=== PATIENT | male | born 1935 | race Caucasian/White ===

== ENCOUNTER 2016-06-28 11:47 | Observation (INO) | payer OTHER ==
[~2016-06-28] VITALS: Ht 165.1 cm; Wt 102.1 kg
[~2016-06-28 11:47] MED LIST: AMLODIPINE BESYL5 MG PO; APRESOLINE25 MG PO; ASPIR 8181 M1 PO; ASPIRIN325 MG PO; ATORVASTATIN CA80 MG PO; BAYER BACK & B1 EACH PO; BYSTOLIC10 MG PO; CLOPIDOGREL75 MG PO; COLCRYS0.6 MG PO; CRESTOR20 MG PO; CYANOCOBALAM1000 MCG PO; ECOTRIN325 MG PO; FUROSEMIDE20 MG PO; HYDROCHLOROTHIA25 MG PO; IRON325 MG PO; KAYEXALATE453.6 GM PO; LEVEMIR FL100 UNIT/1 SQ; LEVOTHYROXINE88 MCG PO; LEXAPRO10 MG PO; LIPITOR40 MG PO; MAGNESIUM400 M1 PO; METFORMIN HCL500 M4 PO; METFORMIN HCL500 MG PO; NITROSTAT0.4 MG SL; PANTOPRAZOLE SO40 MG PO; PERCOCET 5/31 TABLET PO; PLAVIX75 MG PO; PRAVASTATIN SOD20 MG PO; PRAVASTATIN SOD80 MG PO; PROTONIX40 MG PO; SODIUM BICARBO325 MG PO; TRADJENTA5 MG PO; VITAMIN D32000 UNIT PO; ZEMPLAR1 MCG PO; ZYLOPRIM100 MG PO; [UNRECOGNIZED DRUG - OTHER] TP
[2016-06-28 12:48] LABS: CHLORIDE 109 mEq/L (99-109); SODIUM 137 mEq/L (136-147)
[2016-06-28 12:50] LABS: GLUCOSE 188 mg/dL (70-99)
[2016-06-28 12:51] LABS: ANION GAP 7 MEQ/L (2-14)
[2016-06-28 12:52] LABS: TOTAL BILIRUBIN 0.1 mg/dL (0.0-1.0)
[2016-06-28 12:53] LABS: ALKALINE PHOSPHATASE 69 IU/L (3-129)
[2016-06-28 12:54] LABS: GFR ESTIMATE (CALCULATED) 22 mL/min/
[2016-06-28 12:55] LABS: UREA NITROGEN (BUN) 44 mg/dL (9-23)
[2016-06-28 13:07] LABS: HEMATOCRIT 29.1 % (38.0-50.0); MCH 28.5 PG (29.0-34.0); MCHC 32.6 G/DL (30.0-36.0); MCV 87.4 FL (86-99); MEAN PLAT.VOLUME 10.5 uM^3 (9.0-12.4); PLATELET COUNT 182 K/uL (156-360); RBC DIS.WIDTH-CV 12.7 % (11.8-14.6); RBC DIS.WIDTH-SD 40.5 % (39-53); RED BLOOD COUNT 3.33 M/uL (4.00-5.50); WHITE BLOOD COUNT 4.7 K/uL (4.1-10.2)
[2016-06-28 13:08] LABS: POTASSIUM 6.1 mEq/L (3.7-5.4)
[2016-06-28 13:35] LABS: ADD MIUA? YES; BILIRUBIN NEGATIVE; BLOOD NEGATIVE; COLOR YELLOW ((YELLOW)); GLUCOSE (STRIP) NEGATIVE; KETONES NEGATIVE; LEUKOCYTES SMALL; NITRITE NEGATIVE; PROTEIN (STRIP) 100; SPECIFIC GRAVITY 1.008 (1.000-1.030); UROBILINOGEN 0.2 MG/DL (0.2-1.0)
[2016-06-28 13:54] LABS: BACTERIA RARE /HPF; EPITHELIAL CELLS RARE /HPF; MUCUS TRACE /LPF; RED BLOOD CELLS 0-5 /HPF (0-5); UCUL ADDED? NO
[2016-06-28 14:35] LABS: POINT-OF-CARE METER ID UU14100415
[2016-06-28] MEDS ORDERED: CARDURA2 M1 PO (15:28)
[2016-06-28] MEDS ORDERED: LEVOTHYROXINE125 MCG PO (15:29)
[2016-06-28] MEDS ORDERED: GLIMEPIRIDE4 MG PO (15:30)
[2016-06-28] MEDS ORDERED: FLEXERIL5 MG PO (15:32)
[2016-06-28] MEDS ORDERED: LABETALOL HCL200 MG PO (15:34)
[2016-06-28] MEDS ORDERED: LEVEMIR FL100 UNIT/1 SC (15:35)
[2016-06-28 18:31] LABS: POINT-OF-CARE METER ID UU14100415
[2016-06-28 19:14] VITALS: BP 173/76
[2016-06-28 19:46] LABS: TROP-I INTERPRETATION NEGATIVE; TROPONIN-I < 0.01 ng/mL (0.0-0.30)
[2016-06-29] VITALS: BP 166/71
[2016-06-29 01:03] LABS: TROP-I INTERPRETATION NEGATIVE; TROPONIN-I < 0.01 ng/mL (0.0-0.30)
[2016-06-29 03:31] VITALS: BP 152/70
[2016-06-29 07:12] LABS: ANION GAP 7 MEQ/L (2-14); CHLORIDE 111 MEQ/L (99-109); GFR ESTIMATE (CALCULATED) 25 mL/min/; SAMPLE HEMOLYSIS CHECK 2; SAMPLE ICTERIC CHECK 0; SAMPLE LIPEMIA CHECK 0; SODIUM 141 MEQ/L (136-147); UREA NITROGEN (BUN) 37 mg/dL (9-23)
[2016-06-29 07:34] LABS: GLUCOSE 56 mg/dL (70-99)
[2016-06-29 07:35] LABS: POTASSIUM ND MEQ/L (3.7-5.4)
[2016-06-29 08:20] VITALS: BP 197/86
[2016-06-29 08:22] LABS: POINT-OF-CARE METER ID UU13113831
[2016-06-29 08:59] LABS: POTASSIUM 4.9 MEQ/L (3.7-5.4)
[2016-06-29 11:01] VITALS: BP 158/80
[2016-06-29] MEDS ORDERED: LEVEMIR100 UNIT/2 SC (12:13)
[2016-06-29 12:21] LABS: POINT-OF-CARE METER ID UU13113700
== END 2016-06-29 14:34 | disposition home or self-care (01) ==
LOC: EME 11:47 → 5WEST 15:50 → EDOF 15:50 → 5WEST 19:18
PROVIDERS: Emergency Medicine; Hospitalist; Internal Medicine
DX: R55 Syncope and collapse (principal); N17.9 Acute kidney failure, unspecified; E87.5 Hyperkalemia; N39.0 Urinary tract infection, site not specified; I12.9 Hypertensive chronic kidney disease with stage 1 through stage 4 chronic kidney disease, or unspecified chronic kidney disease; N18.3 Chronic kidney disease, stage 3 (moderate); E78.5 Hyperlipidemia, unspecified; E11.9 Type 2 diabetes mellitus without complications; Z79.4 Long term (current) use of insulin; I25.10 Atherosclerotic heart disease of native coronary artery without angina pectoris; Z95.5 Presence of coronary angioplasty implant and graft; D64.9 Anemia, unspecified
CPT/HCPCS: 70450; 71010; 80048; 80053; 81003; 82948; 84484; 84999; 85027; 93005; 99281; 99285; G0378; J0696; J1644; J1815; J7030; J7050

== ENCOUNTER 2016-07-16 12:12 | Inpatient (IN) | payer OTHER ==
[~2016-07-16] VITALS: Ht 162.6 cm; Wt 104.6 kg
[~2016-07-16 12:12] MED LIST changes: +CARDURA2 M1 PO; +FLEXERIL5 MG PO; +GLIMEPIRIDE4 MG PO; +LABETALOL HCL200 MG PO; +LEVEMIR FL100 UNIT/1 SC; +LEVEMIR100 UNIT/2 SC; +LEVOTHYROXINE125 MCG PO
[2016-07-16 12:50] LABS: EOSINOPHIL (%) 2.2 % (0-5); EOSINOPHIL COUNT 0.1 K/uL (0-0.3); HEMATOCRIT 29.5 % (38.0-50.0); IMMATURE GRANULOCYTE (%) 0.4 % (0.0-0.7); INSTRUMENT ABS NEUTROPHIL CT 3.7 K/uL; LYMPHOCYTE COUNT 1.3 K/uL (1.0-2.8); MCH 28.2 PG (29.0-34.0); MCHC 32.9 G/DL (30.0-36.0); MCV 85.8 FL (86-99); MEAN PLAT.VOLUME 10.2 uM^3 (9.0-12.4); MONOCYTE (%) 6.7 % (3-12); MONOCYTE COUNT 0.4 K/uL (0-0.8); NEUTROPHIL (%) 66.2 % (45-76); NEUTROPHIL COUNT 3.7 K/uL (1.8-6.4); PLATELET COUNT 228 K/uL (156-360); RBC DIS.WIDTH-CV 12.9 % (11.8-14.6); RBC DIS.WIDTH-SD 40.1 % (39-53); RED BLOOD COUNT 3.44 M/uL (4.00-5.50); WHITE BLOOD COUNT 5.5 K/uL (4.1-10.2)
[2016-07-16 12:57] LABS: CHLORIDE 111 mEq/L (99-109); POTASSIUM 5.8 mEq/L (3.7-5.4); SODIUM 135 mEq/L (136-147)
[2016-07-16 12:58] LABS: GLUCOSE 195 mg/dL (70-99); PROTHROMBIN TIME 10.3 (9.2-11.2)
[2016-07-16 13:00] LABS: ANION GAP 8 MEQ/L (2-14)
[2016-07-16 13:02] LABS: GFR ESTIMATE (CALCULATED) 22 mL/min/
[2016-07-16 13:03] LABS: UREA NITROGEN (BUN) 52 mg/dL (9-23)
[2016-07-16] MEDS ORDERED: VITAMIN D2000 UNIT PO (13:56)
[2016-07-16] MEDS ORDERED: VELTASSA16.8 GM PO (14:03)
[2016-07-16] MEDS ORDERED: GLIMEPIRIDE4 MG PO (14:03)
[2016-07-16] MEDS ORDERED: ALKA-SELTZER O1 EACH PO (14:04)
[2016-07-16 14:38] LABS: POINT-OF-CARE METER ID UU13113702
[2016-07-16 17:45] VITALS: BP 192/87
[2016-07-16 18:49] LABS: POINT-OF-CARE METER ID UU14149397
[2016-07-16 19:17] VITALS: BP 192/87
[2016-07-16 20:43] LABS: ANION GAP 10 MEQ/L (2-14); CHLORIDE 110 MEQ/L (99-109); GFR ESTIMATE (CALCULATED) 24 mL/min/; GLUCOSE 276 mg/dL (70-99); POTASSIUM 4.7 MEQ/L (3.7-5.4); SAMPLE HEMOLYSIS CHECK 0; SAMPLE ICTERIC CHECK 0; SAMPLE LIPEMIA CHECK 0; SODIUM 138 MEQ/L (136-147); UREA NITROGEN (BUN) 49 mg/dL (9-23)
[2016-07-16 21:59] LABS: POINT-OF-CARE METER ID UU14149397
[2016-07-16 23:50] VITALS: BP 188/64
[2016-07-17 02:11] VITALS: BP 147/68
[2016-07-17 04:18] VITALS: BP 136/63
[2016-07-17 05:01] LABS: MCH 28.9 PG (29.0-34.0); MCHC 33.7 G/DL (30.0-36.0); MCV 85.7 FL (86-99); MEAN PLAT.VOLUME 10.4 uM^3 (9.0-12.4); PLATELET COUNT 214 K/uL (156-360); RBC DIS.WIDTH-CV 12.8 % (11.8-14.6); RBC DIS.WIDTH-SD 39.7 % (39-53); RED BLOOD COUNT 3.15 M/uL (4.00-5.50); WHITE BLOOD COUNT 5.3 K/uL (4.1-10.2)
[2016-07-17 05:20] LABS: CHLORIDE 113 mEq/L (99-109); POTASSIUM 4.5 mEq/L (3.7-5.4); SODIUM 141 mEq/L (136-147)
[2016-07-17 05:22] LABS: GLUCOSE 84 mg/dL (70-99)
[2016-07-17 05:23] LABS: ANION GAP 11 MEQ/L (2-14)
[2016-07-17 05:25] LABS: GFR ESTIMATE (CALCULATED) 25 mL/min/
[2016-07-17 05:26] LABS: UREA NITROGEN (BUN) 53 mg/dL (9-23)
[2016-07-17 08:25] VITALS: BP 133/83
[2016-07-17 11:52] LABS: POINT-OF-CARE METER ID UU14188577
[2016-07-17 12:06] VITALS: BP 166/73
[2016-07-17 16:21] VITALS: BP 175/76
[2016-07-17 16:41] LABS: POINT-OF-CARE METER ID UU14188577
[2016-07-17 19:56] VITALS: BP 182/74
[2016-07-18 00:22] VITALS: BP 120/74
[2016-07-18 03:36] LABS: POINT-OF-CARE METER ID UU14149397
[2016-07-18 04:25] LABS: POINT-OF-CARE METER ID UU14149397
[2016-07-18 04:53] VITALS: BP 172/70
[2016-07-18 06:19] LABS: POINT-OF-CARE METER ID UU14149397
[2016-07-18 08:00] VITALS: BP 175/71
[2016-07-18 11:35] VITALS: BP 168/66
[2016-07-18 15:01] LABS: Estimated Average Glucose 197 mg/dL (70-123)
[2016-07-18 16:15] LABS: HEMOGLOBIN A1c (GLYCOHEMOGLOB) 8.5 % HGB (Below 5.7)
== END 2016-07-18 13:15 | disposition home or self-care (01) | DRG 683 ==
LOC: EME → EDBD 12:12 → EME 12:12 → EDOF 14:10 → 3EAST 14:10
PROVIDERS: Emergency Medicine; Internal Medicine; Physician Assistant; Student in an Organized Health Care Education/Training Program
DX: N17.9 Acute kidney failure, unspecified (principal); E87.1 Hypo-osmolality and hyponatremia; E87.2 Acidosis; E87.5 Hyperkalemia; N18.4 Chronic kidney disease, stage 4 (severe); I65.21 Occlusion and stenosis of right carotid artery; I12.9 Hypertensive chronic kidney disease with stage 1 through stage 4 chronic kidney disease, or unspecified chronic kidney disease; R55 Syncope and collapse; E78.5 Hyperlipidemia, unspecified; E11.22 Type 2 diabetes mellitus with diabetic chronic kidney disease; I25.10 Atherosclerotic heart disease of native coronary artery without angina pectoris; E03.9 Hypothyroidism, unspecified; R51 Headache; E66.9 Obesity, unspecified; D63.1 Anemia in chronic kidney disease; Z86.73 Personal history of transient ischemic attack (TIA), and cerebral infarction without residual deficits; Z87.891 Personal history of nicotine dependence; Z79.4 Long term (current) use of insulin; Z95.5 Presence of coronary angioplasty implant and graft; Z68.39 Body mass index [BMI] 39.0-39.9, adult; Z86.79 Personal history of other diseases of the circulatory system
CPT/HCPCS: 70450; 80048; 80048 91; 80069; 82948; 83036; 84443; 85025; 85027; 85610; 93005; 99281; 99285; J1644; J1815; J7030

== ENCOUNTER 2017-01-16 19:54 | Inpatient (IN) | payer OTHER ==
[~2017-01-16] VITALS: Ht 162.6 cm; Wt 102.8 kg
[~2017-01-16 19:54] MED LIST changes: +ALKA-SELTZER O1 EACH PO; +KIONEX15 GM/60 M PO; +VITAMIN D2000 UNIT PO; -ZEMPLAR1 MCG PO; +ZEMPLAR2 MCG PO
[2017-01-16 20:20] LABS: HEMATOCRIT 26.6 % (38.0-50.0); MCH 28.2 PG (29.0-34.0); MCHC 32.7 G/DL (30.0-36.0); MCV 86.4 FL (86-99); PLATELET COUNT 204 K/uL (156-360); RBC DIS.WIDTH-CV 12.7 % (11.8-14.6); RBC DIS.WIDTH-SD 39.8 % (39-53); RED BLOOD COUNT 3.08 M/uL (4.00-5.50); WHITE BLOOD COUNT 5.5 K/uL (4.1-10.2)
[2017-01-16 20:29] LABS: CHLORIDE 111 mEq/L (99-109); POTASSIUM 5.8 mEq/L (3.7-5.4); SODIUM 137 mEq/L (136-147)
[2017-01-16 20:31] LABS: GLUCOSE 354 mg/dL (70-99)
[2017-01-16 20:32] LABS: ANION GAP 7 MEQ/L (2-14)
[2017-01-16 20:35] LABS: GFR ESTIMATE (CALCULATED) 18 mL/min/
[2017-01-16 20:36] LABS: UREA NITROGEN (BUN) 52 mg/dL (9-23)
[2017-01-16 20:40] LABS: TROP-I INTERPRETATION NEGATIVE; TROPONIN-I 0.02 ng/mL (0.0-0.30)
[2017-01-16 22:36] LABS: POINT-OF-CARE METER ID UU13113702
[2017-01-16] MEDS ORDERED: IRON325 M1 PO (23:00)
[2017-01-16] MEDS ORDERED: RANEXA500 MG PO (23:02)
[2017-01-16] MEDS ORDERED: B COMPLEX #11 EACH PO (23:02)
[2017-01-17] VITALS (8 sets, daily range): BP systolic 158–206; BP diastolic 69–98
[2017-01-17 00:28] LABS: POINT-OF-CARE METER ID UU13113831
[2017-01-17 03:22] LABS: HEMATOCRIT 25.6 % (38.0-50.0); MCH 28.1 PG (29.0-34.0); MCHC 32.4 G/DL (30.0-36.0); MCV 86.8 FL (86-99); MEAN PLAT.VOLUME 10.3 uM^3 (9.0-12.4); PLATELET COUNT 202 K/uL (156-360); RBC DIS.WIDTH-CV 12.8 % (11.8-14.6); RBC DIS.WIDTH-SD 40.2 % (39-53); RED BLOOD COUNT 2.95 M/uL (4.00-5.50); WHITE BLOOD COUNT 5.3 K/uL (4.1-10.2)
[2017-01-17 03:39] LABS: CHLORIDE 109 mEq/L (99-109); POTASSIUM 5.1 mEq/L (3.7-5.4); SODIUM 140 mEq/L (136-147)
[2017-01-17 03:41] LABS: GLUCOSE 215 mg/dL (70-99)
[2017-01-17 03:42] LABS: ANION GAP 9 MEQ/L (2-14)
[2017-01-17 03:43] LABS: TOTAL BILIRUBIN 0.2 mg/dL (0.0-1.0)
[2017-01-17 03:45] LABS: ALKALINE PHOSPHATASE 107 IU/L (3-129); GFR ESTIMATE (CALCULATED) 18 mL/min/
[2017-01-17 03:46] LABS: TROP-I INTERPRETATION NEGATIVE; TROPONIN-I 0.11 ng/mL (0.0-0.30); UREA NITROGEN (BUN) 51 mg/dL (9-23)
[2017-01-17 08:43] LABS: POINT-OF-CARE METER ID UU13113831
[2017-01-17 09:20] LABS: TROP-I INTERPRETATION NEGATIVE; TROPONIN-I 0.12 ng/mL (0.0-0.30)
[2017-01-17 12:59] LABS: POINT-OF-CARE METER ID UU13113831
[2017-01-17 17:34] LABS: POINT-OF-CARE METER ID UU13113831
[2017-01-17 21:35] LABS: POINT-OF-CARE METER ID UU13113700
[2017-01-18 00:32] VITALS: BP 152/67
[2017-01-18 04:30] VITALS: BP 193/86
[2017-01-18 05:26] LABS: POINT-OF-CARE METER ID UU13113831
[2017-01-18 06:00] LABS: POINT-OF-CARE METER ID UU13113831
[2017-01-18 07:37] LABS: ANION GAP 10 MEQ/L (2-14); CHLORIDE 104 MEQ/L (99-109); GFR ESTIMATE (CALCULATED) 20 mL/min/; GLUCOSE 218 mg/dL (70-99); POTASSIUM 5.4 MEQ/L (3.7-5.4); SAMPLE HEMOLYSIS CHECK 0; SAMPLE ICTERIC CHECK 0; SAMPLE LIPEMIA CHECK 0; SODIUM 139 MEQ/L (136-147); UREA NITROGEN (BUN) 50 mg/dL (9-23)
[2017-01-18 07:43] VITALS: BP 128/60
[2017-01-18 07:54] LABS: POINT-OF-CARE METER ID UU13113831
[2017-01-18 11:52] VITALS: BP 126/66
[2017-01-18 12:35] LABS: POINT-OF-CARE METER ID UU13113831
[2017-01-18 15:37] VITALS: BP 149/64
[2017-01-18 17:52] LABS: POINT-OF-CARE METER ID UU13113831
[2017-01-18 19:20] VITALS: BP 153/67
[2017-01-18 22:06] LABS: POINT-OF-CARE METER ID UU13113831
[2017-01-19 00:40] VITALS: BP 123/57
[2017-01-19 03:40] LABS: POINT-OF-CARE METER ID UU13113831
[2017-01-19 04:04] LABS: POINT-OF-CARE METER ID UU13113831
[2017-01-19 04:14] VITALS: BP 128/56
[2017-01-19 06:48] LABS: ANION GAP 11 MEQ/L (2-14); CHLORIDE 104 MEQ/L (99-109); GFR ESTIMATE (CALCULATED) 17 mL/min/; POTASSIUM 5.2 MEQ/L (3.7-5.4); SAMPLE HEMOLYSIS CHECK 0; SAMPLE ICTERIC CHECK 0; SAMPLE LIPEMIA CHECK 0; SODIUM 140 MEQ/L (136-147); UREA NITROGEN (BUN) 53 mg/dL (9-23)
[2017-01-19 06:49] LABS: GLUCOSE 79 mg/dL (70-99)
[2017-01-19 07:24] VITALS: BP 187/71
[2017-01-19 07:35] VITALS: BP 179/78
[2017-01-19 09:14] LABS: POINT-OF-CARE METER ID UU13113831
[2017-01-19 10:42] VITALS: BP 131/63
[2017-01-19 10:57] LABS: POINT-OF-CARE METER ID UU13113831
[2017-01-19 13:07] LABS: POINT-OF-CARE METER ID UU13113831
[2017-01-19 14:02] LABS: TROP-I INTERPRETATION NEGATIVE; TROPONIN-I 0.04 ng/mL (0.0-0.30)
[2017-01-19] MEDS ORDERED: FAMOTIDINE20 MG PO (14:02)
[2017-01-19] MEDS ORDERED: LORAZEPAM0.5 MG PO (14:02)
[2017-01-19] MEDS ORDERED: APRESOLINE50 MG PO (14:02)
== END 2017-01-19 15:32 | disposition home or self-care (01) | DRG 683 ==
LOC: EME → EDBD 19:54 → EDOF 21:57 → 5WEST 21:57 → ENRESERV 22:01 → 5WEST 01-17 00:04 → CANRESERV 01-17 17:31 → ENRESERV 01-17 17:31 → ENPENDDIS 01-19 → 5WEST 01-19 15:32
PROVIDERS: Hospitalist; Internal Medicine; Internal Medicine Nephrology
DX: I12.9 Hypertensive chronic kidney disease with stage 1 through stage 4 chronic kidney disease, or unspecified chronic kidney disease (principal); N17.9 Acute kidney failure, unspecified; I25.10 Atherosclerotic heart disease of native coronary artery without angina pectoris; E11.22 Type 2 diabetes mellitus with diabetic chronic kidney disease; E66.01 Morbid (severe) obesity due to excess calories; N18.4 Chronic kidney disease, stage 4 (severe); E87.5 Hyperkalemia; F41.0 Panic disorder [episodic paroxysmal anxiety]; D63.1 Anemia in chronic kidney disease; I16.0 Hypertensive urgency; R07.9 Chest pain, unspecified; R51 Headache; K21.9 Gastro-esophageal reflux disease without esophagitis; E78.5 Hyperlipidemia, unspecified; Z79.4 Long term (current) use of insulin; Z87.891 Personal history of nicotine dependence; Z86.73 Personal history of transient ischemic attack (TIA), and cerebral infarction without residual deficits; Z95.5 Presence of coronary angioplasty implant and graft; Z79.899 Other long term (current) drug therapy; Z68.38 Body mass index [BMI] 38.0-38.9, adult; F33.9 Major depressive disorder, recurrent, unspecified
CPT/HCPCS: 70450; 71020; 76770; 80048; 80053; 82948; 83880; 84484; 85027; 90686; 93005; 93975; 99281; 99285; G0378; J0360; J1644; J1815; J1940

== ENCOUNTER 2017-01-26 00:42 | Inpatient (IN) | payer OTHER ==
[~2017-01-26] VITALS: Ht 162.6 cm; Wt 104.8 kg
[2017-01-26] VITALS (13 sets, daily range): BP systolic 143–216; BP diastolic 57–113
[~2017-01-26 00:42] MED LIST changes: +APRESOLINE50 MG PO; +B COMPLEX #11 EACH PO; +FAMOTIDINE20 MG PO; +IRON325 M1 PO; +LORAZEPAM0.5 MG PO; +RANEXA500 MG PO
[2017-01-26 01:12] LABS: HEMATOCRIT 30.4 % (38.0-50.0); MCH 28.5 PG (29.0-34.0); MCHC 32.9 G/DL (30.0-36.0); MCV 86.6 FL (86-99); RBC DIS.WIDTH-CV 12.8 % (11.8-14.6); RBC DIS.WIDTH-SD 40.2 % (39-53); RED BLOOD COUNT 3.51 M/uL (4.00-5.50); WHITE BLOOD COUNT 7.1 K/uL (4.1-10.2)
[2017-01-26 01:13] LABS: PLATELET COUNT 286 K/uL (156-360)
[2017-01-26 01:24] LABS: CHLORIDE 104 mEq/L (99-109); POTASSIUM 4.8 mEq/L (3.7-5.4); SODIUM 135 mEq/L (136-147)
[2017-01-26 01:27] LABS: ANION GAP 11 MEQ/L (2-14)
[2017-01-26 01:29] LABS: GFR ESTIMATE (CALCULATED) 15 mL/min/
[2017-01-26 01:30] LABS: UREA NITROGEN (BUN) 46 mg/dL (9-23)
[2017-01-26 01:33] LABS: TROP-I INTERPRETATION NEGATIVE; TROPONIN-I 0.05 ng/mL (0.0-0.30)
[2017-01-26 01:38] LABS: GLUCOSE 466 mg/dL (70-99)
[2017-01-26 03:33] LABS: ADD MIUA? YES; BILIRUBIN NEGATIVE; BLOOD NEGATIVE; COLOR YELLOW ((YELLOW)); GLUCOSE (STRIP) >=500; KETONES NEGATIVE; LEUKOCYTES NEGATIVE; NITRITE NEGATIVE; PROTEIN (STRIP) >=500; SPECIFIC GRAVITY 1.013 (1.000-1.030); UROBILINOGEN 0.2 MG/DL (0.2-1.0)
[2017-01-26 03:44] LABS: BACTERIA NONE SEEN /HPF; EPITHELIAL CELLS RARE /HPF; MUCUS NONE SEEN /LPF; RED BLOOD CELLS 0-5 /HPF (0-5); UCUL ADDED? NO; WHITE BLOOD CELLS 0-5 /HPF (0-5)
[2017-01-26 06:24] LABS: GLUCOSE 202 mg/dL (70-99)
[2017-01-26 06:25] LABS: TROP-I INTERPRETATION NEGATIVE; TROPONIN-I 0.05 ng/mL (0.0-0.30)
[2017-01-26 07:11] LABS: Estimated Average Glucose 220 mg/dL (70-123); HEMOGLOBIN A1c (GLYCOHEMOGLOB) 9.3 % HGB (Below 5.7)
[2017-01-26 08:48] LABS: POINT-OF-CARE METER ID UU13113747; POINT-OF-CARE USER ID HMLKAV
[2017-01-26] MEDS ORDERED: MAGNESIUM 300300 MG PO (11:14)
[2017-01-26 11:22] LABS: TROP-I INTERPRETATION NEGATIVE; TROPONIN-I 0.05 ng/mL (0.0-0.30)
[2017-01-26 12:03] LABS: PROTHROMBIN TIME 11.2 SEC (10.2-12.9)
[2017-01-26 12:05] LABS: PTT 29.6 SEC (25-37)
[2017-01-26 12:20] LABS: GLUCOSE 517 mg/dL (70-99)
[2017-01-26 14:48] LABS: METH RESISTANT S AUREUS PCR NEGATIVE (NEGATIVE)
[2017-01-26 14:57] LABS: PROBE CHECK PASS; SPECIMEN PROCESSING CONTROL PASS
[2017-01-26 16:22] LABS: POINT-OF-CARE METER ID UU13113774
[2017-01-26 16:22] LABS: POINT-OF-CARE METER ID UU13113725
[2017-01-26 19:42] LABS: UR CREATININE CONCENTRATION 71.4 MG/DL
[2017-01-26 20:02] LABS: TROP-I INTERPRETATION POSITIVE; TROPONIN-I 1.54 ng/mL (0.0-0.30)
[2017-01-26 22:15] LABS: POINT-OF-CARE METER ID UU13113731
[2017-01-27] VITALS (17 sets, daily range): BP systolic 98–147; BP diastolic 39–75
[2017-01-27 00:58] LABS: TROP-I INTERPRETATION POSITIVE
[2017-01-27 04:51] LABS: EOSINOPHIL (%) 0 % (0-5); HEMATOCRIT 26.7 % (38.0-50.0); IMMATURE GRANULOCYTE (%) 0.4 % (0.0-0.7); INSTRUMENT ABS NEUTROPHIL CT 7.2 K/uL; LYMPHOCYTE COUNT 1.2 K/uL (1.0-2.8); MCH 28.1 PG (29.0-34.0); MCHC 31.8 G/DL (30.0-36.0); MCV 88.1 FL (86-99); MEAN PLAT.VOLUME 10.6 uM^3 (9.0-12.4); MONOCYTE (%) 7.5 % (3-12); MONOCYTE COUNT 0.7 K/uL (0-0.8); NEUTROPHIL (%) 79.1 % (45-76); NEUTROPHIL COUNT 7.2 K/uL (1.8-6.4); PLATELET COUNT 232 K/uL (156-360); RBC DIS.WIDTH-SD 41.4 % (39-53); RED BLOOD COUNT 3.03 M/uL (4.00-5.50); WHITE BLOOD COUNT 9.1 K/uL (4.1-10.2)
[2017-01-27 05:30] LABS: CHLORIDE 107 mEq/L (99-109); POTASSIUM 5.6 mEq/L (3.7-5.4); SODIUM 137 mEq/L (136-147)
[2017-01-27 05:31] LABS: MAGNESIUM 2.9 mg/dL (1.3-2.7)
[2017-01-27 05:34] LABS: ANION GAP 11 MEQ/L (2-14)
[2017-01-27 05:36] LABS: GFR ESTIMATE (CALCULATED) 15 mL/min/
[2017-01-27 05:37] LABS: UREA NITROGEN (BUN) 52 mg/dL (9-23)
[2017-01-27 05:43] LABS: GLUCOSE 137 mg/dL (70-99)
[2017-01-27 08:52] LABS: POINT-OF-CARE METER ID UU13113731
[2017-01-27 12:43] LABS: POINT-OF-CARE METER ID UU14314082
[2017-01-27 13:00] LABS: TROP-I INTERPRETATION POSITIVE; TROPONIN-I 2.21 ng/mL (0.0-0.30)
[2017-01-27 18:31] LABS: TROP-I INTERPRETATION POSITIVE; TROPONIN-I 1.71 ng/mL (0.0-0.30)
[2017-01-27 19:09] LABS: POINT-OF-CARE METER ID UU14174217
[2017-01-27 21:53] LABS: POINT-OF-CARE METER ID UU14208751
[2017-01-28] VITALS (15 sets, daily range): BP systolic 128–192; BP diastolic 57–95
[2017-01-28 00:59] LABS: TROP-I INTERPRETATION POSITIVE
[2017-01-28 01:00] LABS: TROPONIN-I 1.27 ng/mL (0.0-0.30)
[2017-01-28 04:09] LABS: EOSINOPHIL (%) 0.5 % (0-5); HEMATOCRIT 25.6 % (38.0-50.0); IMMATURE GRANULOCYTE (%) 0.8 % (0.0-0.7); IMMATURE GRANULOCYTE COUNT 0.1 K/uL; INSTRUMENT ABS NEUTROPHIL CT 6.1 K/uL; LYMPHOCYTE COUNT 1.2 K/uL (1.0-2.8); MCH 28.2 PG (29.0-34.0); MCHC 31.6 G/DL (30.0-36.0); MCV 89.2 FL (86-99); MEAN PLAT.VOLUME 10.6 uM^3 (9.0-12.4); MONOCYTE (%) 5.5 % (3-12); MONOCYTE COUNT 0.4 K/uL (0-0.8); NEUTROPHIL (%) 77.1 % (45-76); NEUTROPHIL COUNT 6.1 K/uL (1.8-6.4); PLATELET COUNT 197 K/uL (156-360); RBC DIS.WIDTH-CV 13.1 % (11.8-14.6); RBC DIS.WIDTH-SD 42.8 % (39-53); RED BLOOD COUNT 2.87 M/uL (4.00-5.50); WHITE BLOOD COUNT 7.9 K/uL (4.1-10.2)
[2017-01-28 04:17] LABS: POINT-OF-CARE METER ID UU14162636
[2017-01-28 04:25] LABS: GLUCOSE 235 mg/dL (70-99)
[2017-01-28 04:34] LABS: CHLORIDE 108 mEq/L (99-109); SODIUM 137 mEq/L (136-147)
[2017-01-28 04:35] LABS: MAGNESIUM 2.7 mg/dL (1.3-2.7); POTASSIUM 4.3 mEq/L (3.7-5.4)
[2017-01-28 04:37] LABS: GLUCOSE 238 mg/dL (70-99)
[2017-01-28 04:38] LABS: ANION GAP 8 MEQ/L (2-14)
[2017-01-28 04:40] LABS: GFR ESTIMATE (CALCULATED) 14 mL/min/
[2017-01-28 04:41] LABS: UREA NITROGEN (BUN) 55 mg/dL (9-23)
[2017-01-28 06:07] LABS: POINT-OF-CARE METER ID UU14208751
[2017-01-28 06:36] LABS: POINT-OF-CARE METER ID UU14208751
[2017-01-28 08:23] LABS: POINT-OF-CARE METER ID UU14208751
[2017-01-28 09:00] LABS: POINT-OF-CARE METER ID UU14208751
[2017-01-28 12:55] LABS: POINT-OF-CARE METER ID UU14162636
[2017-01-28 17:08] LABS: POINT-OF-CARE METER ID UU13113731
[2017-01-28 22:52] LABS: POINT-OF-CARE METER ID UU13113731
[2017-01-29] VITALS (8 sets, daily range): BP systolic 118–159; BP diastolic 48–78
[2017-01-29 05:35] LABS: HEMATOCRIT 23.6 % (38.0-50.0); MCH 28.9 PG (29.0-34.0); MCHC 32.6 G/DL (30.0-36.0); MCV 88.7 FL (86-99); MEAN PLAT.VOLUME 10.9 uM^3 (9.0-12.4); PLATELET COUNT 192 K/uL (156-360); RBC DIS.WIDTH-CV 13.1 % (11.8-14.6); RBC DIS.WIDTH-SD 42.5 % (39-53); RED BLOOD COUNT 2.66 M/uL (4.00-5.50); WHITE BLOOD COUNT 7.6 K/uL (4.1-10.2)
[2017-01-29 08:06] LABS: POINT-OF-CARE METER ID UU13113731
[2017-01-29 08:59] LABS: ANION GAP 11 MEQ/L (2-14); CHLORIDE 106 MEQ/L (99-109); GFR ESTIMATE (CALCULATED) 15 mL/min/; GLUCOSE 136 mg/dL (70-99); IRON 10 MCG/DL (35-150); POTASSIUM 4.5 MEQ/L (3.7-5.4); SAMPLE HEMOLYSIS CHECK 0; SAMPLE ICTERIC CHECK 0; SAMPLE LIPEMIA CHECK 0; SODIUM 140 MEQ/L (136-147); UREA NITROGEN (BUN) 53 mg/dL (9-23)
[2017-01-29 12:18] LABS: POINT-OF-CARE METER ID UU13113731
[2017-01-29 19:54] LABS: POINT-OF-CARE METER ID UU14314082
[2017-01-29 20:17] LABS: POINT-OF-CARE METER ID UU14162636
[2017-01-29 20:42] LABS: POINT-OF-CARE METER ID UU13113748
[2017-01-30 03:36] VITALS: BP 189/79
[2017-01-30 05:26] LABS: HEMATOCRIT 23.8 % (38.0-50.0); MCH 28.9 PG (29.0-34.0); MCHC 33.2 G/DL (30.0-36.0); MCV 87.2 FL (86-99); MEAN PLAT.VOLUME 10.9 uM^3 (9.0-12.4); PLATELET COUNT 202 K/uL (156-360); RBC DIS.WIDTH-SD 41.2 % (39-53); RED BLOOD COUNT 2.73 M/uL (4.00-5.50); WHITE BLOOD COUNT 8.6 K/uL (4.1-10.2)
[2017-01-30 06:00] VITALS: BP 168/70
[2017-01-30 06:02] LABS: ANION GAP 10 MEQ/L (2-14); CHLORIDE 104 MEQ/L (99-109); GFR ESTIMATE (CALCULATED) 14 mL/min/; GLUCOSE 152 mg/dL (70-99); POTASSIUM 4.2 MEQ/L (3.7-5.4); SAMPLE HEMOLYSIS CHECK 0; SAMPLE ICTERIC CHECK 0; SAMPLE LIPEMIA CHECK 0; SODIUM 136 MEQ/L (136-147); UREA NITROGEN (BUN) 60 mg/dL (9-23)
[2017-01-30 06:58] VITALS: BP 167/72
[2017-01-30 07:42] LABS: POINT-OF-CARE METER ID UU14174216
[2017-01-30 11:22] LABS: POINT-OF-CARE METER ID UU14174216
[2017-01-30 11:44] VITALS: BP 140/63
[2017-01-30 15:55] VITALS: BP 152/87
[2017-01-30 16:13] LABS: POINT-OF-CARE METER ID UU14174216
[2017-01-30 19:11] VITALS: BP 147/65
[2017-01-30 21:05] LABS: POINT-OF-CARE METER ID UU14174216
[2017-01-31] VITALS (8 sets, daily range): BP systolic 116–224; BP diastolic 55–90
[2017-01-31 05:22] LABS: HEMATOCRIT 23.1 % (38.0-50.0); MCH 28.2 PG (29.0-34.0); MCHC 32.5 G/DL (30.0-36.0); MCV 86.8 FL (86-99); MEAN PLAT.VOLUME 10.6 uM^3 (9.0-12.4); PLATELET COUNT 238 K/uL (156-360); RBC DIS.WIDTH-CV 12.9 % (11.8-14.6); RBC DIS.WIDTH-SD 40.6 % (39-53); RED BLOOD COUNT 2.66 M/uL (4.00-5.50); WHITE BLOOD COUNT 9.9 K/uL (4.1-10.2)
[2017-01-31 05:58] LABS: ANION GAP 12 MEQ/L (2-14); CHLORIDE 104 MEQ/L (99-109); GFR ESTIMATE (CALCULATED) 15 mL/min/; POTASSIUM 4.1 MEQ/L (3.7-5.4); SAMPLE HEMOLYSIS CHECK 0; SAMPLE ICTERIC CHECK 0; SAMPLE LIPEMIA CHECK 0; SODIUM 139 MEQ/L (136-147); UREA NITROGEN (BUN) 60 mg/dL (9-23)
[2017-01-31 06:07] LABS: GLUCOSE 59 mg/dL (70-99)
[2017-01-31 07:29] LABS: POINT-OF-CARE METER ID UU13113698
[2017-01-31 11:35] LABS: POINT-OF-CARE METER ID UU14174216
[2017-01-31 16:34] LABS: POINT-OF-CARE METER ID UU14174216
[2017-01-31 21:46] LABS: POINT-OF-CARE METER ID UU13113698
[2017-02-01] VITALS (11 sets, daily range): BP systolic 114–175; BP diastolic 56–74
[2017-02-01 05:30] LABS: MCH 28.2 PG (29.0-34.0); MCHC 32.2 G/DL (30.0-36.0); MCV 87.8 FL (86-99); MEAN PLAT.VOLUME 10.9 uM^3 (9.0-12.4); PLATELET COUNT 217 K/uL (156-360); RBC DIS.WIDTH-SD 41.2 % (39-53); RED BLOOD COUNT 2.62 M/uL (4.00-5.50); WHITE BLOOD COUNT 7.3 K/uL (4.1-10.2)
[2017-02-01 06:11] LABS: ANION GAP 12 MEQ/L (2-14); CHLORIDE 102 MEQ/L (99-109); GFR ESTIMATE (CALCULATED) 15 mL/min/; POTASSIUM 4.2 MEQ/L (3.7-5.4); SAMPLE HEMOLYSIS CHECK 0; SAMPLE ICTERIC CHECK 0; SAMPLE LIPEMIA CHECK 0; SODIUM 139 MEQ/L (136-147); UREA NITROGEN (BUN) 58 mg/dL (9-23)
[2017-02-01 06:13] LABS: GLUCOSE 93 mg/dL (70-99)
[2017-02-01 07:24] LABS: POINT-OF-CARE METER ID UU13113698; POINT-OF-CARE USER ID NUTSLF44
[2017-02-01 12:47] LABS: POINT-OF-CARE METER ID UU14174216; POINT-OF-CARE USER ID NUTSLF44
[2017-02-01 16:14] LABS: POINT-OF-CARE METER ID UU13113781; POINT-OF-CARE USER ID NUTSLF44
[2017-02-01 21:21] LABS: POINT-OF-CARE METER ID UU13113698
[2017-02-02 05:07] LABS: EOSINOPHIL (%) 3.3 % (0-5); EOSINOPHIL COUNT 0.2 K/uL (0-0.3); HEMATOCRIT 26.9 % (38.0-50.0); IMMATURE GRANULOCYTE (%) 1.8 % (0.0-0.7); IMMATURE GRANULOCYTE COUNT 0.1 K/uL; INSTRUMENT ABS NEUTROPHIL CT 4.6 K/uL; MCH 28.6 PG (29.0-34.0); MCHC 32.7 G/DL (30.0-36.0); MCV 87.3 FL (86-99); MEAN PLAT.VOLUME 10.7 uM^3 (9.0-12.4); MONOCYTE (%) 9.5 % (3-12); MONOCYTE COUNT 0.6 K/uL (0-0.8); NEUTROPHIL (%) 69.5 % (45-76); NEUTROPHIL COUNT 4.6 K/uL (1.8-6.4); NRBC (%) 0.3 /100 WBC (0-0); PLATELET COUNT 212 K/uL (156-360); RBC DIS.WIDTH-CV 13.2 % (11.8-14.6); RED BLOOD COUNT 3.08 M/uL (4.00-5.50); WHITE BLOOD COUNT 6.6 K/uL (4.1-10.2)
[2017-02-02 05:12] LABS: CHLORIDE 104 mEq/L (99-109); POTASSIUM 4.4 mEq/L (3.7-5.4); SODIUM 136 mEq/L (136-147)
[2017-02-02 05:14] LABS: GLUCOSE 139 mg/dL (70-99)
[2017-02-02 05:16] LABS: ANION GAP 8 MEQ/L (2-14)
[2017-02-02 05:18] LABS: GFR ESTIMATE (CALCULATED) 15 mL/min/
[2017-02-02 05:19] LABS: UREA NITROGEN (BUN) 57 mg/dL (9-23)
[2017-02-02 07:30] VITALS: BP 150/70
[2017-02-02 08:11] LABS: POINT-OF-CARE METER ID UU14174216
[2017-02-02 10:46] VITALS: BP 134/62
[2017-02-02 11:54] LABS: POINT-OF-CARE METER ID UU13113698
[2017-02-02] MEDS ORDERED: DUONEB 2.5-0.5 M3 ML AEROSOL (16:10)
[2017-02-02] MEDS ORDERED: IMDUR30 MG PO (16:11)
[2017-02-02] MEDS ORDERED: APRESOLINE25 MG PO (16:11)
[2017-02-02] MEDS ORDERED: NITROSTAT0.4 MG SL (16:11)
[2017-02-02] MEDS ORDERED: FLONASE16 G1 BOTH NARES (16:12)
[2017-02-02] MEDS ORDERED: LABETALOL HCL200 MG PO (16:12)
[2017-02-02] MEDS ORDERED: NABI650T PO (16:19)
[2017-02-02 16:55] VITALS: BP 157/67
[2017-02-02 16:57] LABS: POINT-OF-CARE METER ID UU13113698; POINT-OF-CARE USER ID ENVKC36
[2017-02-02] MEDS ORDERED: HEPARIN SO5000 UNIT4 SC (17:46)
[2017-02-02] MEDS ORDERED: ARANESP60 MCG/0.3 SC (17:48)
[2017-02-02] MEDS ORDERED: LEVEMIR FL100 UNIT/1 SC (17:49)
[2017-02-02] MEDS ORDERED: COLACE100 MG PO (17:49)
[2017-02-02] MEDS ORDERED: LEXAPRO10 MG PO (17:50)
[2017-02-02] MEDS ORDERED: APRESOLINE20 MG/ML IV (17:52)
[2017-02-02] MEDS ORDERED: PROTONIX40 MG PO (17:53)
[2017-02-02] MEDS ORDERED: ATIVAN0.5 MG PO (17:55)
[2017-02-02] MEDS ORDERED: NOVOLOG PE100 UNITS/ SC (17:56)
[2017-02-02] MEDS ORDERED: PLAVIX75 MG PO (17:56)
[2017-02-02] MEDS ORDERED: MAALOX ADVANCE355 ML PO (17:58)
[2017-02-02] MEDS ORDERED: RANEXA500 MG PO (18:00)
== END 2017-02-02 17:07 | DRG 281 ==
LOC: EME → EDBD 00:42 → EME 00:42 → EDOF 05:03 → CANRESERV 05:05 → ENRESERV 05:05 → EDOF 05:12 → 4WEST 05:12 → 4EAST 05:12 → ENRESERV 05:17 → 5EAST 06:25 → ENRESERV 11:07 → 4WEST 12:37 → ENRESERV 01-29 20:43 → 4EAST 01-29 21:21
PROVIDERS: Emergency Medicine; Hospitalist; Internal Medicine Nephrology
PROC: 30233N1 Transfusion of Nonautologous Red Blood Cells into Peripheral Vein, Percutaneous Approach (ICD-10-PCS; principal; 2017-02-01)
DX: I21.4 Non-ST elevation (NSTEMI) myocardial infarction (principal); I16.0 Hypertensive urgency; I12.9 Hypertensive chronic kidney disease with stage 1 through stage 4 chronic kidney disease, or unspecified chronic kidney disease; N18.4 Chronic kidney disease, stage 4 (severe); N17.9 Acute kidney failure, unspecified; E87.70 Fluid overload, unspecified; E87.1 Hypo-osmolality and hyponatremia; E87.2 Acidosis; E87.5 Hyperkalemia; E11.649 Type 2 diabetes mellitus with hypoglycemia without coma; E11.65 Type 2 diabetes mellitus with hyperglycemia; E11.22 Type 2 diabetes mellitus with diabetic chronic kidney disease; I08.1 Rheumatic disorders of both mitral and tricuspid valves; D63.1 Anemia in chronic kidney disease; D50.9 Iron deficiency anemia, unspecified; I25.10 Atherosclerotic heart disease of native coronary artery without angina pectoris; E78.5 Hyperlipidemia, unspecified; F41.9 Anxiety disorder, unspecified; K21.9 Gastro-esophageal reflux disease without esophagitis; G43.909 Migraine, unspecified, not intractable, without status migrainosus; E03.9 Hypothyroidism, unspecified; F32.9 Major depressive disorder, single episode, unspecified; E66.9 Obesity, unspecified; Z68.39 Body mass index [BMI] 39.0-39.9, adult; I25.2 Old myocardial infarction; Z79.02 Long term (current) use of antithrombotics/antiplatelets; Z79.82 Long term (current) use of aspirin; Z79.4 Long term (current) use of insulin; Z95.5 Presence of coronary angioplasty implant and graft; Z86.73 Personal history of transient ischemic attack (TIA), and cerebral infarction without residual deficits; Z87.891 Personal history of nicotine dependence
CPT/HCPCS: 70450; 71010; 76705; 78582; 80048; 80069; 81003; 82272; 82570; 82948; 83036; 83540; 83735; 84100; 84156; 84443; 84466; 84484; 84999; 85025; 85027; 85610; 85730; 86850; 86900; 86901; 86920; 87641; 93005; 93306; 94799; 97530 GO; 99202; 99281; 99285; A9540; A9567; J0360; J0780; J0881; J1100; J1200; J1644; J1756; J1815; J1940; J2270; J2405; J2765; J7030; J7050; P9016

== ENCOUNTER 2017-02-02 10:11 | Inpatient (IN) | payer OTHER ==
[~2017-02-02] VITALS: Ht 162.6 cm; Wt 109.8 kg
[~2017-02-02 10:11] MED LIST changes: +MAGNESIUM 300300 MG PO
[2017-02-02] MEDS ORDERED: DUONEB 2.5-0.5 M3 ML AEROSOL (16:10)
[2017-02-02] MEDS ORDERED: IMDUR30 MG PO (16:11)
[2017-02-02] MEDS ORDERED: APRESOLINE25 MG PO (16:11)
[2017-02-02] MEDS ORDERED: NITROSTAT0.4 MG SL (16:11)
[2017-02-02] MEDS ORDERED: FLONASE16 G1 BOTH NARES (16:12)
[2017-02-02] MEDS ORDERED: LABETALOL HCL200 MG PO (16:12)
[2017-02-02] MEDS ORDERED: NABI650T PO (16:19)
[2017-02-02] MEDS ORDERED: HEPARIN SO5000 UNIT4 SC (17:46)
[2017-02-02 17:48] LABS: POINT-OF-CARE METER ID UU13113720
[2017-02-02] MEDS ORDERED: ARANESP60 MCG/0.3 SC (17:48)
[2017-02-02] MEDS ORDERED: LEVEMIR FL100 UNIT/1 SC (17:49)
[2017-02-02] MEDS ORDERED: COLACE100 MG PO (17:49)
[2017-02-02] MEDS ORDERED: LEXAPRO10 MG PO (17:50)
[2017-02-02] MEDS ORDERED: APRESOLINE20 MG/ML IV (17:52)
[2017-02-02] MEDS ORDERED: PROTONIX40 MG PO (17:53)
[2017-02-02] MEDS ORDERED: ATIVAN0.5 MG PO (17:55)
[2017-02-02] MEDS ORDERED: NOVOLOG PE100 UNITS/ SC (17:56)
[2017-02-02] MEDS ORDERED: PLAVIX75 MG PO (17:56)
[2017-02-02] MEDS ORDERED: MAALOX ADVANCE355 ML PO (17:58)
[2017-02-02] MEDS ORDERED: RANEXA500 MG PO (18:00)
[2017-02-02 18:08] VITALS: BP 146/64
[2017-02-02 21:27] LABS: POINT-OF-CARE METER ID UU14174215
[2017-02-03 05:32] VITALS: BP 117/55
[2017-02-03 05:32] LABS: MCH 28.9 PG (29.0-34.0); MCHC 32.1 G/DL (30.0-36.0); MEAN PLAT.VOLUME 10.8 uM^3 (9.0-12.4); PLATELET COUNT 215 K/uL (156-360); RBC DIS.WIDTH-CV 13.3 % (11.8-14.6); RED BLOOD COUNT 3.11 M/uL (4.00-5.50); WHITE BLOOD COUNT 6.4 K/uL (4.1-10.2)
[2017-02-03 06:40] LABS: ALKALINE PHOSPHATASE 126 IU/L (3-129); ANION GAP 9 MEQ/L (2-14); CHLORIDE 101 MEQ/L (99-109); GFR ESTIMATE (CALCULATED) 13 mL/min/; GLUCOSE 182 mg/dL (70-99); POTASSIUM 4.9 MEQ/L (3.7-5.4); SAMPLE HEMOLYSIS CHECK 0; SAMPLE ICTERIC CHECK 0; SAMPLE LIPEMIA CHECK 0; SODIUM 136 MEQ/L (136-147); TOTAL BILIRUBIN 0.4 MG/DL (0.0-1.0); UREA NITROGEN (BUN) 58 mg/dL (9-23)
[2017-02-03 07:09] LABS: POINT-OF-CARE METER ID UU14174215; POINT-OF-CARE USER ID ENVGAF
[2017-02-03 11:43] LABS: POINT-OF-CARE METER ID UU14174215; POINT-OF-CARE USER ID ENVGAF
[2017-02-03 15:26] VITALS: BP 118/57
[2017-02-03 17:57] LABS: POINT-OF-CARE METER ID UU14174215
[2017-02-03 20:57] LABS: POINT-OF-CARE METER ID UU13113720
[2017-02-04 04:34] VITALS: BP 104/51
[2017-02-04 07:57] LABS: POINT-OF-CARE METER ID UU14174215; POINT-OF-CARE USER ID AHSSSJB31
[2017-02-04 11:50] LABS: POINT-OF-CARE METER ID UU13113720; POINT-OF-CARE USER ID AHSSSJB31
[2017-02-04 13:25] LABS: ANTI-HEPATITIS B CORE (TOTAL) Nonreactive; HBCT INDEX 0.11
[2017-02-04 14:25] LABS: EOSINOPHIL (%) 1.7 % (0-5); EOSINOPHIL COUNT 0.1 K/uL (0-0.3); HEMATOCRIT 28.2 % (38.0-50.0); IMMATURE GRANULOCYTE (%) 1.1 % (0.0-0.7); IMMATURE GRANULOCYTE COUNT 0.1 K/uL; INSTRUMENT ABS NEUTROPHIL CT 5.6 K/uL; MCH 28.6 PG (29.0-34.0); MCHC 30.9 G/DL (30.0-36.0); MCV 92.8 FL (86-99); MEAN PLAT.VOLUME 11.1 uM^3 (9.0-12.4); MONOCYTE (%) 7.1 % (3-12); MONOCYTE COUNT 0.5 K/uL (0-0.8); NEUTROPHIL (%) 76.7 % (45-76); NEUTROPHIL COUNT 5.6 K/uL (1.8-6.4); PLATELET COUNT 200 K/uL (156-360); RBC DIS.WIDTH-CV 13.7 % (11.8-14.6); RBC DIS.WIDTH-SD 44.3 % (39-53); RED BLOOD COUNT 3.04 M/uL (4.00-5.50); WHITE BLOOD COUNT 7.2 K/uL (4.1-10.2)
[2017-02-04 14:31] LABS: HBSG INDEX 0.17
[2017-02-04 14:32] LABS: HPCA INDEX 0.11
[2017-02-04 14:33] LABS: AHBS INDEX 0.34; HEPATITIS B SURFACE ANTIBODY Nonreactive
[2017-02-04 14:36] LABS: ANION GAP 11 MEQ/L (2-14); CHLORIDE 99 MEQ/L (99-109); POTASSIUM 4.7 MEQ/L (3.7-5.4); SAMPLE HEMOLYSIS CHECK 0; SAMPLE ICTERIC CHECK 0; SAMPLE LIPEMIA CHECK 0; SODIUM 136 MEQ/L (136-147)
[2017-02-04 14:41] LABS: GFR ESTIMATE (CALCULATED) 13 mL/min/; GLUCOSE 142 mg/dL (70-99); UREA NITROGEN (BUN) 64 mg/dL (9-23)
[2017-02-04 16:19] LABS: POINT-OF-CARE METER ID UU14174215; POINT-OF-CARE USER ID 610211320
[2017-02-04 16:21] VITALS: BP 165/70
[2017-02-04 21:24] LABS: POINT-OF-CARE METER ID UU14174215
[2017-02-05 05:59] VITALS: BP 123/57
[2017-02-05 07:30] LABS: POINT-OF-CARE METER ID UU13113720; POINT-OF-CARE USER ID AHSSSJB31
[2017-02-05 07:49] LABS: POINT-OF-CARE METER ID UU13113720; POINT-OF-CARE USER ID AHSSSJB31
[2017-02-05 11:53] LABS: POINT-OF-CARE METER ID UU13113720; POINT-OF-CARE USER ID AHSSSJB31
[2017-02-05 15:51] VITALS: BP 128/58
[2017-02-05 15:59] LABS: POINT-OF-CARE METER ID UU13113720; POINT-OF-CARE USER ID 610211320
[2017-02-05 21:04] LABS: POINT-OF-CARE METER ID UU13113720; POINT-OF-CARE USER ID 610211320
[2017-02-06 05:27] VITALS: BP 167/71
[2017-02-06 05:36] LABS: POINT-OF-CARE METER ID UU13113720
[2017-02-06 05:51] LABS: EOSINOPHIL (%) 2.3 % (0-5); EOSINOPHIL COUNT 0.1 K/uL (0-0.3); HEMATOCRIT 27.7 % (38.0-50.0); IMMATURE GRANULOCYTE (%) 1.3 % (0.0-0.7); IMMATURE GRANULOCYTE COUNT 0.1 K/uL; INSTRUMENT ABS NEUTROPHIL CT 3.6 K/uL; MCH 28.8 PG (29.0-34.0); MCHC 31.4 G/DL (30.0-36.0); MCV 91.7 FL (86-99); MEAN PLAT.VOLUME 10.3 uM^3 (9.0-12.4); MONOCYTE (%) 8.8 % (3-12); MONOCYTE COUNT 0.5 K/uL (0-0.8); NEUTROPHIL (%) 68.4 % (45-76); NEUTROPHIL COUNT 3.6 K/uL (1.8-6.4); PLATELET COUNT 165 K/uL (156-360); RBC DIS.WIDTH-CV 13.5 % (11.8-14.6); RBC DIS.WIDTH-SD 43.4 % (39-53); RED BLOOD COUNT 3.02 M/uL (4.00-5.50); WHITE BLOOD COUNT 5.2 K/uL (4.1-10.2)
[2017-02-06 06:23] LABS: ANION GAP 7 MEQ/L (2-14); CHLORIDE 100 MEQ/L (99-109); GFR ESTIMATE (CALCULATED) 15 mL/min/; POTASSIUM 4.7 MEQ/L (3.7-5.4); SAMPLE HEMOLYSIS CHECK 0; SAMPLE ICTERIC CHECK 0; SAMPLE LIPEMIA CHECK 0; SODIUM 138 MEQ/L (136-147); UREA NITROGEN (BUN) 45 mg/dL (9-23)
[2017-02-06 06:24] LABS: GLUCOSE 73 mg/dL (70-99)
[2017-02-06 14:47] VITALS: BP 172/75
[2017-02-06 14:53] LABS: POINT-OF-CARE METER ID UU13113720; POINT-OF-CARE USER ID AHSSSJB31
[2017-02-06 15:17] VITALS: BP 161/68
[2017-02-06 16:28] LABS: POINT-OF-CARE METER ID UU13113720
[2017-02-06 21:10] LABS: POINT-OF-CARE METER ID UU13113720
[2017-02-07 05:50] VITALS: BP 168/92
[2017-02-07 06:16] LABS: EOSINOPHIL COUNT 0.1 K/uL (0-0.3); HEMATOCRIT 27.7 % (38.0-50.0); IMMATURE GRANULOCYTE (%) 1.3 % (0.0-0.7); IMMATURE GRANULOCYTE COUNT 0.1 K/uL; INSTRUMENT ABS NEUTROPHIL CT 3.2 K/uL; LYMPHOCYTE COUNT 0.9 K/uL (1.0-2.8); MCH 28.2 PG (29.0-34.0); MCHC 31.4 G/DL (30.0-36.0); MCV 89.9 FL (86-99); MEAN PLAT.VOLUME 10.3 uM^3 (9.0-12.4); MONOCYTE (%) 7.5 % (3-12); MONOCYTE COUNT 0.4 K/uL (0-0.8); NEUTROPHIL (%) 67.7 % (45-76); NEUTROPHIL COUNT 3.2 K/uL (1.8-6.4); PLATELET COUNT 165 K/uL (156-360); RBC DIS.WIDTH-CV 13.3 % (11.8-14.6); RBC DIS.WIDTH-SD 42.6 % (39-53); RED BLOOD COUNT 3.08 M/uL (4.00-5.50); WHITE BLOOD COUNT 4.7 K/uL (4.1-10.2)
[2017-02-07 06:52] LABS: ANION GAP 7 MEQ/L (2-14); CHLORIDE 101 MEQ/L (99-109); GFR ESTIMATE (CALCULATED) 24 mL/min/; GLUCOSE 96 mg/dL (70-99); POTASSIUM 4.6 MEQ/L (3.7-5.4); SAMPLE HEMOLYSIS CHECK 0; SAMPLE ICTERIC CHECK 0; SAMPLE LIPEMIA CHECK 0; SODIUM 138 MEQ/L (136-147); UREA NITROGEN (BUN) 23 mg/dL (9-23)
[2017-02-07 07:07] LABS: POINT-OF-CARE METER ID UU14174215; POINT-OF-CARE USER ID ENVGAF
[2017-02-07 12:00] VITALS: BP 197/85
[2017-02-07 12:19] LABS: POINT-OF-CARE METER ID UU14174215; POINT-OF-CARE USER ID ENVGAF
[2017-02-07 12:45] VITALS: BP 152/70
[2017-02-07 15:16] VITALS: BP 178/80
[2017-02-07 16:22] LABS: POINT-OF-CARE METER ID UU14174215
[2017-02-07 21:25] LABS: POINT-OF-CARE METER ID UU14174215
[2017-02-08 05:33] VITALS: BP 168/82
[2017-02-08 07:01] LABS: POINT-OF-CARE METER ID UU13113720; POINT-OF-CARE USER ID ENVGAF
[2017-02-08 08:35] LABS: EOSINOPHIL (%) 2.7 % (0-5); EOSINOPHIL COUNT 0.2 K/uL (0-0.3); HEMATOCRIT 28.3 % (38.0-50.0); IMMATURE GRANULOCYTE (%) 0.8 % (0.0-0.7); IMMATURE GRANULOCYTE COUNT 0.1 K/uL; INSTRUMENT ABS NEUTROPHIL CT 4.5 K/uL; LYMPHOCYTE COUNT 0.8 K/uL (1.0-2.8); MCH 28.3 PG (29.0-34.0); MCHC 31.4 G/DL (30.0-36.0); MCV 90.1 FL (86-99); MONOCYTE (%) 7.3 % (3-12); MONOCYTE COUNT 0.4 K/uL (0-0.8); NEUTROPHIL (%) 74.9 % (45-76); NEUTROPHIL COUNT 4.5 K/uL (1.8-6.4); PLATELET COUNT 178 K/uL (156-360); RBC DIS.WIDTH-CV 13.4 % (11.8-14.6); RBC DIS.WIDTH-SD 43.3 % (39-53); RED BLOOD COUNT 3.14 M/uL (4.00-5.50)
[2017-02-08 08:55] LABS: ANION GAP 7 MEQ/L (2-14); CHLORIDE 102 MEQ/L (99-109); GFR ESTIMATE (CALCULATED) 22 mL/min/; GLUCOSE 173 mg/dL (70-99); POTASSIUM 4.7 MEQ/L (3.7-5.4); SAMPLE HEMOLYSIS CHECK 0; SAMPLE ICTERIC CHECK 0; SAMPLE LIPEMIA CHECK 0; SODIUM 139 MEQ/L (136-147); UREA NITROGEN (BUN) 26 mg/dL (9-23)
[2017-02-08 12:42] VITALS: BP 192/80
[2017-02-08 12:52] LABS: POINT-OF-CARE METER ID UU13113720
[2017-02-08 13:24] VITALS: BP 155/68
[2017-02-08 13:26] LABS: POINT-OF-CARE METER ID UU13113720
[2017-02-08 15:07] VITALS: BP 118/56
[2017-02-08 16:18] LABS: POINT-OF-CARE METER ID UU13113720
[2017-02-08 21:22] LABS: POINT-OF-CARE METER ID UU13113720
[2017-02-09 04:55] VITALS: BP 152/65
[2017-02-09 05:22] LABS: EOSINOPHIL (%) 4.1 % (0-5); EOSINOPHIL COUNT 0.2 K/uL (0-0.3); HEMATOCRIT 26.3 % (38.0-50.0); IMMATURE GRANULOCYTE (%) 0.6 % (0.0-0.7); INSTRUMENT ABS NEUTROPHIL CT 2.8 K/uL; LYMPHOCYTE COUNT 1.2 K/uL (1.0-2.8); MCH 28.2 PG (29.0-34.0); MCHC 31.2 G/DL (30.0-36.0); MCV 90.4 FL (86-99); MONOCYTE COUNT 0.5 K/uL (0-0.8); NEUTROPHIL (%) 59.8 % (45-76); NEUTROPHIL COUNT 2.8 K/uL (1.8-6.4); RBC DIS.WIDTH-CV 13.3 % (11.8-14.6); RBC DIS.WIDTH-SD 43.4 % (39-53); RED BLOOD COUNT 2.91 M/uL (4.00-5.50); WHITE BLOOD COUNT 4.6 K/uL (4.1-10.2)
[2017-02-09 05:44] LABS: ANION GAP 6 MEQ/L (2-14); CHLORIDE 101 MEQ/L (99-109); GFR ESTIMATE (CALCULATED) 24 mL/min/; POTASSIUM 4.3 MEQ/L (3.7-5.4); SAMPLE HEMOLYSIS CHECK 0; SAMPLE ICTERIC CHECK 0; SAMPLE LIPEMIA CHECK 0; SODIUM 139 MEQ/L (136-147); UREA NITROGEN (BUN) 18 mg/dL (9-23)
[2017-02-09 05:46] LABS: GLUCOSE 57 mg/dL (70-99)
[2017-02-09 06:24] LABS: MEAN PLAT.VOLUME 10.1 uM^3 (9.0-12.4); PLAT.SUFFICIENCY DECREASED
[2017-02-09 06:26] LABS: PLATELET COUNT 118 K/uL (156-360)
[2017-02-09 07:41] LABS: POINT-OF-CARE METER ID UU13113720; POINT-OF-CARE USER ID AHSSSJB31
[2017-02-09 09:39] VITALS: BP 131/59
[2017-02-09 09:56] VITALS: BP 164/70
[2017-02-09 11:03] VITALS: BP 168/80
[2017-02-09 11:35] LABS: POINT-OF-CARE METER ID UU13113720; POINT-OF-CARE USER ID AHSSSJB31
[2017-02-09 13:20] VITALS: BP 170/78
[2017-02-09 13:45] LABS: HEMATOCRIT 27.6 % (38.0-50.0); MCH 28.5 PG (29.0-34.0); MCHC 31.5 G/DL (30.0-36.0); MCV 90.5 FL (86-99); MEAN PLAT.VOLUME 10.4 uM^3 (9.0-12.4); PLATELET COUNT 131 K/uL (156-360); RBC DIS.WIDTH-CV 13.2 % (11.8-14.6); RBC DIS.WIDTH-SD 43.2 % (39-53); RED BLOOD COUNT 3.05 M/uL (4.00-5.50); WHITE BLOOD COUNT 5.5 K/uL (4.1-10.2)
[2017-02-09 14:04] LABS: TROP-I INTERPRETATION NEGATIVE; TROPONIN-I 0.03 ng/mL (0.0-0.30)
[2017-02-09 14:14] LABS: ANION GAP 6 MEQ/L (2-14); CHLORIDE 94 MEQ/L (99-109); GFR ESTIMATE (CALCULATED) 22 mL/min/; GLUCOSE 278 mg/dL (70-99); POTASSIUM 4.6 MEQ/L (3.7-5.4); SAMPLE HEMOLYSIS CHECK 0; SAMPLE ICTERIC CHECK 0; SAMPLE LIPEMIA CHECK 0; SODIUM 130 MEQ/L (136-147); UREA NITROGEN (BUN) 21 mg/dL (9-23)
[2017-02-09 15:11] VITALS: BP 177/80
[2017-02-09 16:27] LABS: POINT-OF-CARE METER ID UU13113720
[2017-02-09 17:35] LABS: TROP-I INTERPRETATION NEGATIVE; TROPONIN-I 0.03 ng/mL (0.0-0.30)
[2017-02-09 20:06] LABS: TROP-I INTERPRETATION NEGATIVE; TROPONIN-I 0.03 ng/mL (0.0-0.30)
[2017-02-09 20:47] LABS: POINT-OF-CARE METER ID UU14174215
[2017-02-10 05:36] VITALS: BP 142/81
[2017-02-10 07:13] VITALS: BP 150/65
[2017-02-10 07:18] LABS: ANION GAP 6 MEQ/L (2-14); CHLORIDE 100 MEQ/L (99-109); GFR ESTIMATE (CALCULATED) 22 mL/min/; SAMPLE HEMOLYSIS CHECK 0; SAMPLE ICTERIC CHECK 0; SAMPLE LIPEMIA CHECK 0; UREA NITROGEN (BUN) 23 mg/dL (9-23)
[2017-02-10 07:19] LABS: GLUCOSE 119 mg/dL (70-99); SODIUM 137 MEQ/L (136-147)
[2017-02-10 07:23] LABS: POINT-OF-CARE METER ID UU14174215; POINT-OF-CARE USER ID AHSSSJB31
[2017-02-10 08:36] LABS: EOSINOPHIL COUNT 0.2 K/uL (0-0.3); HEMATOCRIT 28.4 % (38.0-50.0); IMMATURE GRANULOCYTE (%) 0.6 % (0.0-0.7); INSTRUMENT ABS NEUTROPHIL CT 3.7 K/uL; LYMPHOCYTE COUNT 0.9 K/uL (1.0-2.8); MCH 28.6 PG (29.0-34.0); MCHC 31.7 G/DL (30.0-36.0); MCV 90.2 FL (86-99); MEAN PLAT.VOLUME 10.6 uM^3 (9.0-12.4); MONOCYTE (%) 8.5 % (3-12); MONOCYTE COUNT 0.5 K/uL (0-0.8); NEUTROPHIL (%) 70.3 % (45-76); NEUTROPHIL COUNT 3.7 K/uL (1.8-6.4); PLATELET COUNT 146 K/uL (156-360); RBC DIS.WIDTH-CV 13.4 % (11.8-14.6); RED BLOOD COUNT 3.15 M/uL (4.00-5.50); WHITE BLOOD COUNT 5.3 K/uL (4.1-10.2)
[2017-02-10 12:54] LABS: POINT-OF-CARE METER ID UU14174215
[2017-02-10 13:00] VITALS: BP 162/70
[2017-02-10 15:58] VITALS: BP 129/62
[2017-02-10 16:30] LABS: POINT-OF-CARE METER ID UU14174215
[2017-02-10 21:29] LABS: POINT-OF-CARE METER ID UU14174215
[2017-02-11 04:15] VITALS: BP 127/59
[2017-02-11 07:14] LABS: POINT-OF-CARE METER ID UU13113720; POINT-OF-CARE USER ID ENVGAF
[2017-02-11 11:37] LABS: POINT-OF-CARE METER ID UU13113720; POINT-OF-CARE USER ID ENVGAF
[2017-02-11 15:02] VITALS: BP 187/81
[2017-02-11 15:47] VITALS: BP 193/82
[2017-02-11 16:18] LABS: POINT-OF-CARE METER ID UU13113720
[2017-02-11 17:31] VITALS: BP 162/82
[2017-02-11 21:28] LABS: POINT-OF-CARE METER ID UU14174215
[2017-02-11 21:42] VITALS: BP 152/76
[2017-02-12 06:05] VITALS: BP 160/76
[2017-02-12 06:30] LABS: POINT-OF-CARE METER ID UU13113720; POINT-OF-CARE USER ID ENVGAF
[2017-02-12 11:28] LABS: POINT-OF-CARE METER ID UU14174215
[2017-02-12 15:19] VITALS: BP 200/90
[2017-02-12 15:33] VITALS: BP 118/78
[2017-02-12 16:15] VITALS: BP 160/82
[2017-02-12 16:18] LABS: POINT-OF-CARE METER ID UU14174215
[2017-02-12 21:09] LABS: POINT-OF-CARE METER ID UU14174215
[2017-02-13 04:56] VITALS: BP 145/78
[2017-02-13 06:36] LABS: POINT-OF-CARE METER ID UU14174215; POINT-OF-CARE USER ID ENVGAF
[2017-02-13 08:46] LABS: EOSINOPHIL (%) 1.8 % (0-5); EOSINOPHIL COUNT 0.1 K/uL (0-0.3); HEMATOCRIT 28.6 % (38.0-50.0); IMMATURE GRANULOCYTE (%) 0.2 % (0.0-0.7); INSTRUMENT ABS NEUTROPHIL CT 3.6 K/uL; LYMPHOCYTE COUNT 0.9 K/uL (1.0-2.8); MCH 28.7 PG (29.0-34.0); MCHC 32.2 G/DL (30.0-36.0); MCV 89.1 FL (86-99); MONOCYTE (%) 8.6 % (3-12); MONOCYTE COUNT 0.4 K/uL (0-0.8); NEUTROPHIL (%) 71.6 % (45-76); NEUTROPHIL COUNT 3.6 K/uL (1.8-6.4); PLATELET COUNT 140 K/uL (156-360); RBC DIS.WIDTH-CV 13.4 % (11.8-14.6); RBC DIS.WIDTH-SD 43.2 % (39-53); RED BLOOD COUNT 3.21 M/uL (4.00-5.50)
[2017-02-13 08:57] LABS: ANION GAP 6 MEQ/L (2-14); CHLORIDE 101 MEQ/L (99-109); SAMPLE HEMOLYSIS CHECK 0; SAMPLE ICTERIC CHECK 0; SAMPLE LIPEMIA CHECK 0; SODIUM 136 MEQ/L (136-147)
[2017-02-13 09:03] LABS: GFR ESTIMATE (CALCULATED) 21 mL/min/; UREA NITROGEN (BUN) 25 mg/dL (9-23)
[2017-02-13 09:04] LABS: GLUCOSE 277 mg/dL (70-99)
[2017-02-13 12:30] VITALS: BP 148/67
[2017-02-13 12:44] LABS: POINT-OF-CARE METER ID UU14174215; POINT-OF-CARE USER ID AHSSSJB31
[2017-02-13 18:29] LABS: POINT-OF-CARE METER ID UU14174215
[2017-02-13 19:22] VITALS: BP 128/62
[2017-02-13 21:20] LABS: POINT-OF-CARE METER ID UU14174215
[2017-02-14 06:25] VITALS: BP 142/80
[2017-02-14 06:31] LABS: EOSINOPHIL (%) 4.1 % (0-5); EOSINOPHIL COUNT 0.2 K/uL (0-0.3); HEMATOCRIT 29.5 % (38.0-50.0); IMMATURE GRANULOCYTE (%) 0.3 % (0.0-0.7); INSTRUMENT ABS NEUTROPHIL CT 2.3 K/uL; LYMPHOCYTE COUNT 1.1 K/uL (1.0-2.8); MCH 28.2 PG (29.0-34.0); MCHC 31.9 G/DL (30.0-36.0); MCV 88.6 FL (86-99); MONOCYTE (%) 10.6 % (3-12); MONOCYTE COUNT 0.4 K/uL (0-0.8); NEUTROPHIL (%) 57.9 % (45-76); NEUTROPHIL COUNT 2.3 K/uL (1.8-6.4); PLATELET COUNT 103 K/uL (156-360); RBC DIS.WIDTH-CV 13.3 % (11.8-14.6); RBC DIS.WIDTH-SD 43.1 % (39-53); RED BLOOD COUNT 3.33 M/uL (4.00-5.50)
[2017-02-14 07:01] LABS: ANION GAP 6 MEQ/L (2-14); CHLORIDE 100 MEQ/L (99-109); GFR ESTIMATE (CALCULATED) 20 mL/min/; SAMPLE HEMOLYSIS CHECK 0; SAMPLE ICTERIC CHECK 0; SAMPLE LIPEMIA CHECK 0; SODIUM 136 MEQ/L (136-147); UREA NITROGEN (BUN) 18 mg/dL (9-23)
[2017-02-14 07:14] LABS: GLUCOSE 116 mg/dL (70-99)
[2017-02-14 07:30] LABS: POINT-OF-CARE METER ID UU14174215; POINT-OF-CARE USER ID AHSSSJB31
[2017-02-14 11:42] LABS: POINT-OF-CARE METER ID UU14174215; POINT-OF-CARE USER ID AHSSSJB31
[2017-02-14 15:25] VITALS: BP 165/83
[2017-02-14] MEDS ORDERED: LABETALOL HCL100 MG PO (17:42)
[2017-02-14] MEDS ORDERED: IMDUR30 MG PO (17:42)
[2017-02-14] MEDS ORDERED: B COMPLEX #11 EACH PO (17:42)
[2017-02-14] MEDS ORDERED: SENNA PLUS TAB1 EACH PO (17:42)
[2017-02-14] MEDS ORDERED: APRESOLINE25 MG PO (17:42)
[2017-02-14] MEDS ORDERED: FLONASE16 G1 BOTH NARES (17:42)
[2017-02-14] MEDS ORDERED: LEVEMIR100 UNIT/2 SC (17:42)
[2017-02-14] MEDS ORDERED: ZEMPLAR2 MCG PO (17:42)
[2017-02-14] MEDS ORDERED: NITROSTAT0.4 MG SL (17:42)
[2017-02-14] MEDS ORDERED: PRAVASTATIN SOD40 MG PO (17:42)
[2017-02-14] MEDS ORDERED: LEXAPRO10 MG PO (17:42)
[2017-02-14] MEDS ORDERED: ACETAMINOPHEN-1 EAC1 PO (17:42)
[2017-02-14] MEDS ORDERED: PROTONIX40 MG PO (17:42)
[2017-02-14] MEDS ORDERED: LEVOTHYROXINE125 MCG PO (17:42)
[2017-02-14] MEDS ORDERED: GLIMEPIRIDE4 MG PO (17:42)
[2017-02-14] MEDS ORDERED: PLAVIX75 MG PO (17:42)
[2017-02-14] MEDS ORDERED: CYANOCOBALAM1000 MCG PO (17:42)
[2017-02-14] MEDS ORDERED: ASPIR 8181 M1 PO (17:42)
[2017-02-14 21:17] LABS: POINT-OF-CARE METER ID UU13113720
[2017-02-15 05:39] VITALS: BP 148/70
[2017-02-15 05:43] LABS: POINT-OF-CARE METER ID UU14174215
[2017-02-15 08:24] LABS: EOSINOPHIL (%) 2.7 % (0-5); EOSINOPHIL COUNT 0.1 K/uL (0-0.3); HEMATOCRIT 28.4 % (38.0-50.0); IMMATURE GRANULOCYTE (%) 0.5 % (0.0-0.7); LYMPHOCYTE COUNT 0.9 K/uL (1.0-2.8); MCH 29.2 PG (29.0-34.0); MCHC 33.5 G/DL (30.0-36.0); MCV 87.4 FL (86-99); MEAN PLAT.VOLUME 10.6 uM^3 (9.0-12.4); MONOCYTE COUNT 0.4 K/uL (0-0.8); NEUTROPHIL (%) 67.4 % (45-76); RBC DIS.WIDTH-CV 13.4 % (11.8-14.6); RBC DIS.WIDTH-SD 42.5 % (39-53); RED BLOOD COUNT 3.25 M/uL (4.00-5.50); WHITE BLOOD COUNT 4.4 K/uL (4.1-10.2)
[2017-02-15 08:26] LABS: PLATELET COUNT 135 K/uL (156-360)
[2017-02-15 08:38] LABS: ANION GAP 7 MEQ/L (2-14); CHLORIDE 98 MEQ/L (99-109); POTASSIUM 4.7 MEQ/L (3.7-5.4); SAMPLE HEMOLYSIS CHECK 0; SAMPLE ICTERIC CHECK 0; SAMPLE LIPEMIA CHECK 0; SODIUM 133 MEQ/L (136-147)
[2017-02-15 08:44] LABS: GFR ESTIMATE (CALCULATED) 20 mL/min/; UREA NITROGEN (BUN) 21 mg/dL (9-23)
[2017-02-15 08:45] LABS: GLUCOSE 186 mg/dL (70-99)
[2017-02-15 12:03] LABS: POINT-OF-CARE METER ID UU14174215; POINT-OF-CARE USER ID AHSSSJB31
[2017-02-15 12:13] VITALS: BP 150/70
[2017-02-15 15:24] VITALS: BP 98/48
== END 2017-02-15 16:30 | disposition home health service (06) | DRG 945 ==
LOC: 3WEST 10:11 → ENPENDDIS 02-15 → 3WEST 02-15 16:30
PROVIDERS: Family Medicine; Internal Medicine Nephrology; Physical Medicine & Rehabilitation Pain Medicine; Student in an Organized Health Care Education/Training Program
PROC: F07M0ZZ Range of Motion and Joint Mobility Treatment of Musculoskeletal System - Whole Body (ICD-10-PCS; principal; 2017-02-02)
PROC: 5A1D70Z Performance of Urinary Filtration, Intermittent, Less than 6 Hours Per Day (ICD-10-PCS; 2017-02-04)
DX: R53.1 Weakness (principal); Z74.09 Other reduced mobility; R26.2 Difficulty in walking, not elsewhere classified; I21.4 Non-ST elevation (NSTEMI) myocardial infarction; N17.9 Acute kidney failure, unspecified; I13.2 Hypertensive heart and chronic kidney disease with heart failure and with stage 5 chronic kidney disease, or end stage renal disease; I50.9 Heart failure, unspecified; N18.6 End stage renal disease; I25.110 Atherosclerotic heart disease of native coronary artery with unstable angina pectoris; I27.20 Pulmonary hypertension, unspecified; G47.33 Obstructive sleep apnea (adult) (pediatric); E11.22 Type 2 diabetes mellitus with diabetic chronic kidney disease; E11.649 Type 2 diabetes mellitus with hypoglycemia without coma; E11.65 Type 2 diabetes mellitus with hyperglycemia; D63.1 Anemia in chronic kidney disease; E78.5 Hyperlipidemia, unspecified; E03.9 Hypothyroidism, unspecified; G89.29 Other chronic pain; K21.9 Gastro-esophageal reflux disease without esophagitis; F41.9 Anxiety disorder, unspecified; E66.01 Morbid (severe) obesity due to excess calories; Z68.41 Body mass index [BMI] 40.0-44.9, adult; I25.2 Old myocardial infarction; Z79.4 Long term (current) use of insulin; Z79.02 Long term (current) use of antithrombotics/antiplatelets; Z86.73 Personal history of transient ischemic attack (TIA), and cerebral infarction without residual deficits; Z87.891 Personal history of nicotine dependence; Z95.5 Presence of coronary angioplasty implant and graft; Z99.2 Dependence on renal dialysis
CPT/HCPCS: 71010; 71020; 80048; 80048 91; 80053; 80069; 82948; 84484; 85025; 85027; 86704; 86706; 86803; 87340; 93005; 94640; 94799; 97110 GO; 97530 GP; 99202; J0690; J0881; J1644; J1815

== ENCOUNTER 2017-02-03 15:36 | Day surgery (SDC) | payer OTHER ==
[~2017-02-03 15:36] MED LIST changes: +APRESOLINE20 MG/ML IV; +ARANESP60 MCG/0.3 SC; +ATIVAN0.5 MG PO; +COLACE100 MG PO; +DUONEB 2.5-0.5 M3 ML AEROSOL; +FLONASE16 G1 BOTH NARES; +HEPARIN SO5000 UNIT4 SC; +IMDUR30 MG PO; +MAALOX ADVANCE355 ML PO; +NABI650T PO; +NOVOLOG PE100 UNITS/ SC
== END 2017-02-03 17:26 | disposition home or self-care (01) ==
LOC: CATH 15:36
DX: N18.9 Chronic kidney disease, unspecified (principal)
CPT/HCPCS: C1750; C1894; J1644; J2250; J3010; S0020

== ENCOUNTER 2017-05-24 11:09 | Day surgery (SDC) | payer OTHER ==
[~2017-05-24] VITALS: Ht 162.6 cm; Wt 95.0 kg
[~2017-05-24 11:09] MED LIST changes: +ACETAMINOPHEN-1 EAC1 PO; +AMARYL2 MG PO; +LABETALOL HCL100 MG PO; +LO-DOSE ASPIRIN81 M2 PO; +NEPHRONEX900 MCG/5 PO; +PRAVASTATIN SOD40 MG PO; +SENNA PLUS TAB1 EACH PO; +SYNTHROID125 MCG PO
[2017-05-24 11:57] LABS: HEMATOCRIT 33.1 % (38.0-50.0); HEMOGLOBIN 11.7 G/DL (12.5-16.6); MCH 30.4 PG (29.0-34.0); MCHC 35.3 G/DL (30.0-36.0); PLATELET COUNT 140 K/uL (156-360); RBC DIS.WIDTH-CV 13.5 % (11.8-14.6); RED BLOOD COUNT 3.85 M/uL (4.00-5.50); WHITE BLOOD COUNT 6.1 K/uL (4.1-10.2)
[2017-05-24 12:01] VITALS: BP 135/61
[2017-05-24 12:40] LABS: CHLORIDE 98 MEQ/L (99-109); CREATININE 3.5 MG/DL (0.6-1.3); GFR ESTIMATE (CALCULATED) 18 mL/min/ (58.99-99999); GLUCOSE 288 mg/dL (70-99); POTASSIUM 3.8 MEQ/L (3.7-5.4); SODIUM 135 MEQ/L (136-147); UREA NITROGEN (BUN) 32 mg/dL (9-23)
[2017-05-24 15:23] VITALS: BP 159/70
[2017-05-24 16:13] VITALS: BP 162/68
== END 2017-05-24 16:20 | disposition home or self-care (01) ==
LOC: SDC 11:09
PROVIDERS: Surgery
DX: I12.0 Hypertensive chronic kidney disease with stage 5 chronic kidney disease or end stage renal disease (principal); E11.22 Type 2 diabetes mellitus with diabetic chronic kidney disease; N18.6 End stage renal disease; Z99.2 Dependence on renal dialysis; Z79.4 Long term (current) use of insulin; Z79.02 Long term (current) use of antithrombotics/antiplatelets; E78.00 Pure hypercholesterolemia, unspecified; K21.9 Gastro-esophageal reflux disease without esophagitis; Z86.73 Personal history of transient ischemic attack (TIA), and cerebral infarction without residual deficits; G47.30 Sleep apnea, unspecified; F41.9 Anxiety disorder, unspecified
CPT/HCPCS: 80048; 82948; 85027; 87641; J0690; J1644; J2250; J2405; J2720

== ENCOUNTER 2017-07-18 06:26 | Day surgery (SDC) | payer OTHER ==
[~2017-07-18] VITALS: Ht 162.6 cm; Wt 95.7 kg
[~2017-07-18 06:26] MED LIST changes: +VITAMIN E PO
[2017-07-18 07:09] LABS: HEMATOCRIT 34.2 % (38.0-50.0); HEMOGLOBIN 11.7 G/DL (12.5-16.6); MCH 29.9 PG (29.0-34.0); MCHC 34.2 G/DL (30.0-36.0); MCV 87.5 FL (86-99); PLATELET COUNT 101 K/uL (156-360); RBC DIS.WIDTH-CV 13.2 % (11.8-14.6); RED BLOOD COUNT 3.91 M/uL (4.00-5.50); WHITE BLOOD COUNT 6.2 K/uL (4.1-10.2)
[2017-07-18 07:33] VITALS: BP 151/67
[2017-07-18 07:33] LABS: CHLORIDE 99 MEQ/L (99-109); CREATININE 2.6 MG/DL (0.6-1.3); GFR ESTIMATE (CALCULATED) 25 mL/min/ (58.99-99999); GLUCOSE 119 mg/dL (70-99); POTASSIUM 3.8 MEQ/L (3.7-5.4); SODIUM 138 MEQ/L (136-147); UREA NITROGEN (BUN) 19 mg/dL (9-23)
[2017-07-18 11:10] VITALS: BP 146/64
[2017-07-18 11:58] VITALS: BP 126/60
== END 2017-07-18 12:39 | disposition home or self-care (01) ==
LOC: SDC 06:26
PROVIDERS: Surgery
PROC: 03180JD Bypass Left Brachial Artery to Upper Arm Vein with Synthetic Substitute, Open Approach (ICD-10-PCS; principal; 2017-07-18)
DX: E11.22 Type 2 diabetes mellitus with diabetic chronic kidney disease (principal); N18.6 End stage renal disease; Z99.2 Dependence on renal dialysis; E78.5 Hyperlipidemia, unspecified; Z86.73 Personal history of transient ischemic attack (TIA), and cerebral infarction without residual deficits; G47.30 Sleep apnea, unspecified; F41.9 Anxiety disorder, unspecified; K21.9 Gastro-esophageal reflux disease without esophagitis; Z79.82 Long term (current) use of aspirin; Z79.4 Long term (current) use of insulin; Z88.8 Allergy status to other drugs, medicaments and biological substances; Z88.5 Allergy status to narcotic agent
CPT/HCPCS: 80048; 82948; 85027; 87641; C1768; J0690; J1644; J2250; J2405; J2720; J3010; S0020

== ENCOUNTER → 2017-08-18 | Outpatient (CLI) | payer OTHER | END | disposition home or self-care (01) | LOC: AMB 08:48 | PROC: 05PY03Z Removal of Infusion Device from Upper Vein, Open Approach (ICD-10-PCS; principal; 2017-08-18) | DX: N18.6 End stage renal disease (principal) ==

== ENCOUNTER 2017-08-25 20:01 | Inpatient (IN) | payer OTHER ==
[~2017-08-25] VITALS: Ht 162.6 cm; Wt 101.0 kg
[2017-08-25 20:48] LABS: HEMATOCRIT 34.8 % (38.0-50.0); HEMOGLOBIN 12.5 G/DL (12.5-16.6); MCH 30.4 PG (29.0-34.0); MCHC 35.9 G/DL (30.0-36.0); MCV 84.7 FL (86-99); PLATELET COUNT 86 K/uL (156-360); RBC DIS.WIDTH-CV 12.4 % (11.8-14.6); RBC DIS.WIDTH-SD 37.7 % (39-53); RED BLOOD COUNT 4.11 M/uL (4.00-5.50); WHITE BLOOD COUNT 9.2 K/uL (4.1-10.2)
[2017-08-25 20:59] LABS: ALBUMIN 4.1 g/dL (3.2-4.8)
[2017-08-25 21:00] LABS: CHLORIDE 85 mEq/L (99-109); POTASSIUM 3.7 mEq/L (3.7-5.4); SODIUM 133 mEq/L (136-147)
[2017-08-25 21:02] LABS: GLUCOSE 345 mg/dL (70-99); TOTAL PROTEIN 7.8 g/dL (6.4-8.3)
[2017-08-25 21:04] LABS: TOTAL BILIRUBIN 0.3 mg/dL (0.0-1.0)
[2017-08-25 21:05] LABS: ALKALINE PHOSPHATASE 131 IU/L (3-129)
[2017-08-25 21:06] LABS: CREATININE 2.4 mg/dL (0.6-1.3); GFR ESTIMATE (CALCULATED) 28 mL/min/ (58.99-99999)
[2017-08-25 21:07] LABS: AST (GOT) 16 IU/L (2-34); DIRECT BILIRUBIN 0.1 mg/dL (0.0-0.3); UREA NITROGEN (BUN) 16 mg/dL (9-23)
[2017-08-25 21:08] LABS: ALT (GPT) 10 IU/L (3-49)
[2017-08-25 21:09] LABS: LIPASE 29 U/L (1.0-51.0)
[2017-08-25 21:15] LABS: TROP-I INTERPRETATION NEGATIVE; TROPONIN-I 0.02 ng/mL (0.0-0.30)
[2017-08-26] VITALS (8 sets, daily range): BP systolic 119–154; BP diastolic 58–79
[2017-08-26] MEDS ORDERED: APRESOLINE50 MG PO (00:07)
[2017-08-26] MEDS ORDERED: ESCITALOPRAM OX10 MG PO (00:07)
[2017-08-26] MEDS ORDERED: PANTOPRAZOLE SO40 MG PO (00:08)
[2017-08-26] MEDS ORDERED: ASPIR-LOW81 MG PO (00:09)
[2017-08-26] MEDS ORDERED: LEVOTHYROXINE150 MCG PO (00:17)
[2017-08-26 01:55] LABS: TROP-I INTERPRETATION INDETERMINATE; TROPONIN-I 0.39 ng/mL (0.0-0.30)
[2017-08-26 03:42] LABS: INTER. NORMALIZED RATIO 1.1
[2017-08-26 03:45] LABS: PTT 27.6 SEC (25-37)
[2017-08-26 07:56] LABS: TROP-I INTERPRETATION POSITIVE; TROPONIN-I 1.48 ng/mL (0.0-0.30)
[2017-08-26 08:38] LABS: HEMATOCRIT 30.6 % (38.0-50.0); HEMOGLOBIN 10.3 G/DL (12.5-16.6); MCH 29.7 PG (29.0-34.0); MCHC 33.7 G/DL (30.0-36.0); MCV 88.2 FL (86-99); PLATELET COUNT 86 K/uL (156-360); RBC DIS.WIDTH-CV 12.7 % (11.8-14.6); RBC DIS.WIDTH-SD 40.7 % (39-53); RED BLOOD COUNT 3.47 M/uL (4.00-5.50); WHITE BLOOD COUNT 4.7 K/uL (4.1-10.2)
[2017-08-26 08:41] LABS: CHLORIDE 91 MEQ/L (99-109); GFR ESTIMATE (CALCULATED) 22 mL/min/ (58.99-99999); GLUCOSE 188 mg/dL (70-99); POTASSIUM 3.8 MEQ/L (3.7-5.4); SODIUM 134 MEQ/L (136-147); UREA NITROGEN (BUN) 21 mg/dL (9-23)
[2017-08-26 15:52] LABS: HEMATOCRIT 29.6 % (38.0-50.0); MCV 89.2 FL (86-99)
[2017-08-26 21:49] LABS: HEMATOCRIT 31.2 % (38.0-50.0); HEMOGLOBIN 10.4 G/DL (12.5-16.6); MCV 88.9 FL (86-99)
[2017-08-27 04:00] VITALS: BP 129/57
[2017-08-27 05:17] LABS: HEMOGLOBIN 9.8 G/DL (12.5-16.6); MCH 29.5 PG (29.0-34.0); MCHC 33.8 G/DL (30.0-36.0); MCV 87.3 FL (86-99); PLATELET COUNT 106 K/uL (156-360); RBC DIS.WIDTH-CV 12.7 % (11.8-14.6); RBC DIS.WIDTH-SD 40.5 % (39-53); RED BLOOD COUNT 3.32 M/uL (4.00-5.50); WHITE BLOOD COUNT 5.2 K/uL (4.1-10.2)
[2017-08-27 07:00] VITALS: BP 92/51
[2017-08-27 07:35] LABS: ALBUMIN 3.5 G/DL (3.2-4.8); ALKALINE PHOSPHATASE 89 IU/L (3-129); ALT (GPT) 7 IU/L (3-49); AST (GOT) 13 IU/L (2-34); TOTAL BILIRUBIN 0.3 MG/DL (0.0-1.0); TOTAL PROTEIN 6.6 G/DL (6.4-8.3)
[2017-08-27 11:46] VITALS: BP 125/61
[2017-08-27 16:05] VITALS: BP 142/65
[2017-08-27 19:02] VITALS: BP 157/70
[2017-08-27 23:05] VITALS: BP 128/59
[2017-08-28 04:45] VITALS: BP 137/63
[2017-08-28 06:12] LABS: HEMATOCRIT 28.6 % (38.0-50.0); HEMOGLOBIN 9.6 G/DL (12.5-16.6); MCH 29.5 PG (29.0-34.0); MCHC 33.6 G/DL (30.0-36.0); PLATELET COUNT 121 K/uL (156-360); RBC DIS.WIDTH-CV 12.7 % (11.8-14.6); RBC DIS.WIDTH-SD 40.6 % (39-53); RED BLOOD COUNT 3.25 M/uL (4.00-5.50); WHITE BLOOD COUNT 7.6 K/uL (4.1-10.2)
[2017-08-28 06:25] LABS: TROP-I INTERPRETATION INDETERMINATE; TROPONIN-I 0.55 ng/mL (0.0-0.30)
[2017-08-28 07:40] VITALS: BP 131/58
[2017-08-28 11:25] VITALS: BP 135/64
[2017-08-28 12:10] LABS: ALBUMIN 3.2 G/DL (3.2-4.8); CHLORIDE 95 MEQ/L (99-109); GFR ESTIMATE (CALCULATED) 13 mL/min/ (58.99-99999); PHOSPHORUS 4.6 mg/dL (2.5-4.9); POTASSIUM 4.4 MEQ/L (3.7-5.4); SODIUM 136 MEQ/L (136-147)
[2017-08-28 12:14] LABS: CREATININE 4.7 MG/DL (0.6-1.3); GLUCOSE 76 mg/dL (70-99); UREA NITROGEN (BUN) 36 mg/dL (9-23)
[2017-08-28] MEDS ORDERED: RANEXA500 MG PO (15:36)
[2017-08-28] MEDS ORDERED: PROPRANOLOL HCL20 MG PO (16:27)
[2017-08-28] MEDS ORDERED: ATORVASTATIN CA40 MG PO (16:44)
[2017-08-28 16:55] VITALS: BP 143/62
== END 2017-08-28 18:24 | disposition home or self-care (01) | DRG 280 ==
LOC: EME → EDBD 20:01 → EDOF 08-26 00:26 → ENRESERV 08-26 00:27 → 4SOUTH 08-26 02:05 → 4EAST 08-26 09:28 → 4SOUTH 08-26 09:28 → ENRESERV 08-26 09:39 → 4EAST 08-26 11:13 → ENPENDDIS 08-28 → 4EAST 08-28 18:24
PROVIDERS: Hospitalist; Internal Medicine; Internal Medicine Cardiovascular Disease; Physician Assistant Medical
PROC: 5A09357 Assistance with Respiratory Ventilation, Less than 24 Consecutive Hours, Continuous Positive Airway Pressure (ICD-10-PCS; principal; 2017-08-26)
PROC: 5A1D70Z Performance of Urinary Filtration, Intermittent, Less than 6 Hours Per Day (ICD-10-PCS; 2017-08-28)
DX: I21.4 Non-ST elevation (NSTEMI) myocardial infarction (principal); I25.110 Atherosclerotic heart disease of native coronary artery with unstable angina pectoris; I12.0 Hypertensive chronic kidney disease with stage 5 chronic kidney disease or end stage renal disease; E11.22 Type 2 diabetes mellitus with diabetic chronic kidney disease; N18.6 End stage renal disease; K21.9 Gastro-esophageal reflux disease without esophagitis; F32.9 Major depressive disorder, single episode, unspecified; E66.9 Obesity, unspecified; G47.33 Obstructive sleep apnea (adult) (pediatric); D64.9 Anemia, unspecified; E78.5 Hyperlipidemia, unspecified; D69.6 Thrombocytopenia, unspecified; R51 Headache; R42 Dizziness and giddiness; Z99.2 Dependence on renal dialysis; Z87.891 Personal history of nicotine dependence; Z86.73 Personal history of transient ischemic attack (TIA), and cerebral infarction without residual deficits; Z79.02 Long term (current) use of antithrombotics/antiplatelets; Z79.82 Long term (current) use of aspirin; Z95.5 Presence of coronary angioplasty implant and graft; Z79.4 Long term (current) use of insulin; Z68.36 Body mass index [BMI] 36.0-36.9, adult
CPT/HCPCS: 71046; 71275; 74177; 80048; 80069; 80076; 82948; 83690; 84484; 85014; 85018; 85027; 85610; 85730; 87641; 93005; 94660; 99281; 99285; J1815; J2060; J2405; J3010